=== PATIENT | male | born 1990 | race Caucasian/White ===

== ENCOUNTER 2018-01-25 14:55 | Emergency (ER) | payer SELFPAY ==
[~2018-01-25] VITALS: Ht 175.3 cm; Wt 110.0 kg
[~2018-01-25 14:55] MED LIST: ALEVE220 M1 PO; AMOXICILLIN500 MG PO; EQL IBUPROFEN200 MG PO; KEFLEX500 M1 PO; MUCINEX600 MG PO; PREDNISONE20 MG PO; PRILOSEC20 MG PO; RANITIDINE75 M1 PO
[2018-01-25] MEDS ORDERED: AMOXICILLIN500 MG PO (17:36)
[2018-01-25 17:45] VITALS: BP 141/74
== END 2018-01-25 17:45 | disposition home or self-care (01) | DRG 605 ==
LOC: ED 14:55
PROC: 0HQLXZZ Repair Left Lower Leg Skin, External Approach (ICD-10-PCS; principal; 2018-01-25)
DX: S81.812A Laceration without foreign body, left lower leg, initial encounter (principal); W27.1XXA Contact with garden tool, initial encounter; Y93.H2 Activity, gardening and landscaping; Y92.007 Garden or yard of unspecified non-institutional (private) residence as the place of occurrence of the external cause

== ENCOUNTER → 2018-08-27 | Outpatient (REF) | END | disposition home or self-care (01) | DRG 951 | LOC: LAB 08:22 | DX: Z02.1 Encounter for pre-employment examination (principal) ==